=== PATIENT | male | born 1945 | race Caucasian/White ===

== ENCOUNTER 2017-03-03 01:21 | Emergency (ER) | payer OTHER ==
[2017-03-03] MEDS ORDERED: LABETALOL HCL 5 MG/ML 20 ML MDV IVP ONE (01:24)
--- NOTE | 2017-03-03 01:29 | EDPHY ---
H & P HPI/ROS: HPI CHIEF COMPLAINT: Stroke alert activated by EMS HISTORY OF PRESENT ILLNESS: This patient very pleasant 71-year-old male who presents emergency room as a stroke alert. Was last seen normal 11:00 p.m. or approximately 2.5 hours ago. His was called to his bed by the patient as he was slurring his speech. She went saw him at 12:30 a.m. or 1 hour ago and realized he was most likely having a stroke and called 911. Upon arrival to the emergency room is 1:25 a.m. he has a left-sided facial droop he is slurring his speech, he is handling his secretions, he has left- sided paralysis left upper extremity and left lower extremity do not move, left facial droop. This concerning for MCA stroke. It is reported to me by EMS that the patient is on Coumadin was recently hospitalized at [facility] to 3 days ago for congestive heart failure was started on Coumadin in the hospital. He is supposed to be taking this outpatient but has not gotten the prescription filled. No history of CVA per EMS. Upon arrival to the emergency room the patient was immediately greeted evaluated by me, he went right to CT scan to have a CT scan head without contrast. I am concerned about a large vessel occlusion. It is also noted upon arrival to the emergency room is blood pressure is 200/ 100. Past Medical History: Alcoholism, hypertension, nonsustained V-tach, hyperlipidemia, diabetes, atrial fib, congestive heart failure on Coumadin Past Surgical History: No recent surgical history Social History: Denies daily use of drugs alcohol tobacco products currently, lives locally, coming to ER. Family History: noncontributory ROS REVIEW OF SYSTEMS: A comprehensive 10 point review of systems is otherwise negative aside from elements mentioned in the history of present illness. Exam Constitutional Alert, awake, triage nursing summary reviewed, vital signs reviewed Eyes normal conjunctivae and sclera, EOMI, PERRLA. HENT normal inspection, atraumatic, moist mucus membranes, no epistaxis, neck supple/ no meningismus, no raccoon eyes. Respiratory clear to auscultation bilaterally, normal breath sounds, no respiratory distress, no wheezing. Cardiovascular rate normal, regular rhythm, no murmur, no edema, distal pulses normal. Gastrointestinal soft, non-tender, no rebound, no guarding, normal bowel sounds, no distension, no pulsatile mass. Genitourinary no CVA tenderness. Musculoskeletal no midline vertebral tenderness, full range of motion, no calf swelling, no tenderness of extremities, no meningismus, good pulses, neurovascularly intact. Skin pink, warm, & dry, no rash, skin atraumatic. Neurologic slurring his speech, left-sided paralysis no movement of the left upper extremity or left lower extremity, left facial droop. Does speak to me. Follows commands. Alert and oriented. Psychiatric normal mood/affect. Heme/Lymph/Immune no lymphadenopathy. Differential Diagnosis: Includes but is not limited to in a particular order acute CVA, large vessel occlusion, MCA infarct, intracranial bleed Medical Decision Making: plan for this patient stroke alert. Patient be immediately sent to CT scan he will be brought back to ER room 1. Need to be placed on full front desk monitor will need to obtain blood work including coags. Patient is obviously having a stroke left-sided deficit. Will consult neurology. 0132AM: Patient is now back from CT and ER room 1. just arrived. Patient may be excluded from tPA if he is on Coumadin or if I cannot get his blood pressure better. Will also speak with Neurology. Re-evaluation: 0133AM: Medication list reviewed from discharge summary from [facility] he is on metoprolol, lisinopril aspirin, Lasix, insulin, simvastatin and per report Coumadin. TIME OF NIHSS: 125AM UPON ARRIVAL: NIHSS 13 (left sided Paralysis (upper and lower, slurring speech, facial droop) 0142am: SPOKE WITH DR. Hernandez with [facility], he will see and evaluate the patient. 0142AM: CT head without contrast normal no bleed or no infarct seen. This was called to me by Dr. Moran. 0154AM: Dr. Carrington has seen and evaluated the Patient. Recommends IV tPA. We did look up his Coumadin level was 1.2 noted on February 27. He was given 20 mg IV labetalol his blood pressure is now 156/122. At this time plan is IV tPA. And also transferred to [facility] by helicopter for possible intervention on a large vessel occlusion. Will give IV systemic tPA here in the emergency room and then patient be transferred emergently by helicopter to [facility] for further care. I did discuss this with the patient and patient's at bedside they are both in agreement. EKG interpretation by me on record in [employer] system. Impression time of EKG 1:43 a.m., this is AFib rate of 122. Critical Care: Total Critical Care Time Spent Managing this Patient: 65 Minutes. This time was spent Exclusively with this patient. This Care was exclusive of procedures. The Organ System/life at risk was brain This Patient was in Critical Condition because acute CVA 0219: Helicopter staff here loading the patient. Patient be flown emergently to [facility] at this time. This time is hemodynamically stable, protecting airway. No indication intubate. Source: Patient, Family, EMS - Medical/Surgical History Hx Asthma: No Hx Chronic Respiratory Disease: No Hx Diabetes: Yes Hx Cardiac Disease: Yes Hx Renal Disease: No Hx Cirrhosis: No Hx Alcoholism: No Hx HIV/AIDS: No Hx Splenectomy or Spleen Trauma: No Other PMH: DM, HTN, dupetrens contractures deshaun hands; - Social History Smoking Status: Former smoker Allergies/Adverse Reactions: haloperidol [From Haldol] Allergy (Verified 10/31/15 10:25) haloperidol lactate [From Haldol] Allergy (Verified 10/31/15 10:25) haldol Allergy (Severe, Uncoded 10/31/15 10:25) Other-Enter Comments Home Medications: Medication Instructions Recorded Humalog Insulin Pump 1 ea SQ AD 10/18/15 Levothyroxine [Synthroid 100 mcg 100 mcg PO DAILY06 10/18/15 (*)] Simvastatin [Zocor] 40 mg PO DAILY 10/18/15 Aspirin [Aspirin 81mg (*)] 81 mg PO DAILY #30 tab 11/06/15 Diphenoxylate HCl/Atrop Sulf 1 tab PO QID #90 tab 11/06/15 [Lomotil Tab (*)] Labetalol HCl [Trandate 200 mg (*)] 300 mg PO BID #60 tab 11/06/15 Lisinopril [Zestril 20 mg (*)] 20 mg PO DAILY #30 tab 11/06/15 Melatonin [Melatonin 3 MG (*)] 3 mg PO HS #30 tab 11/06/15 QUEtiapine FUMARATE [Seroquel 50 50 mg PO HS #30 tab 11/06/15 mg (*)] clonIDINE [Catapres-Tts (*)] 0.3 mg TD Q7D #15 patch 11/06/15 Medical Decision Making - Data Points Laboratory Results: Laboratory Results 03/03/17 01:37 03/03/17 01:37 03/03/17 03/03/17 03/03/17 01:37 01:37 01:37 WBC RBC Hgb Hct MCV MCH MCHC RDW Plt Count MPV Neut % (Auto) Lymph % (Auto) [place] % (Auto) Eos % (Auto) Baso % (Auto) Nucleat RBC Rel Count Absolute Neuts (auto) Absolute Lymphs (auto) Absolute Monos (auto) Absolute Eos (auto) Absolute Basos (auto) Absolute Nucleated RBC Immature Gran % Immature Gran # PT 14.5 SEC SEC (12.0-15.0) INR 1.14 (0.83-1.16) APTT 30.9 SEC SEC (23.0-38.0) Sodium 134 mEq/L mEq/L (134-144) Potassium 4.8 mEq/L mEq/L (3.5-5.2) Chloride 105 mEq/L mEq/L (97-110) Carbon Dioxide 18 mEq/l L mEq/l (22-31) Anion Gap 11 mEq/L mEq/L (8-16) BUN 21 mg/dL mg/dL (7-23) Creatinine 1.2 mg/dL mg/dL (0.7-1.3) Estimated GFR 59 Glucose 122 mg/dL H mg/dL (70-100) Calcium 8.9 mg/dL mg/dL (8.5-10.4) Troponin I 0.044 ng/mL H ng/mL (0-0.034) Specimen Hemolysis 113 Ethyl Alcohol < 10 mg/dL mg/dL (0-10) Patient ABO/Rh Pending Antibody Screen Pending 03/03/17 01:37 WBC 11.10 10^3/uL H 10^3/uL (3.80-9.50) RBC 4.62 10^6/uL 10^6/uL (4.40-6.38) Hgb 14.1 g/dL g/dL (13.7-17.5) Hct 41.9 % % (40.0-51.0) MCV 90.7 fL fL (81.5-99.8) MCH 30.5 pg pg (27.9-34.1) MCHC 33.7 g/dL g/dL (32.4-36.7) RDW 13.5 % % (11.5-15.2) Plt Count 205 10^3/uL 10^3/uL (150-400) MPV 10.6 fL fL (8.7-11.7) Neut % (Auto) 42.3 % % (39.3-74.2) Lymph % (Auto) 47.2 % H % (15.0-45.0) [place] % (Auto) 7.3 % % (4.5-13.0) Eos % (Auto) 2.3 % % (0.6-7.6) Baso % (Auto) 0.6 % % (0.3-1.7) Nucleat RBC Rel Count 0.0 % % (0.0-0.2) Absolute Neuts (auto) 4.69 10^3/uL 10^3/uL (1.70-6.50) Absolute Lymphs (auto) 5.24 10^3/uL H 10^3/uL (1.00-3.00) Absolute Monos (auto) 0.81 10^3/uL H 10^3/uL (0.30-0.80) Absolute Eos (auto) 0.26 10^3/uL 10^3/uL (0.03-0.40) Absolute Basos (auto) 0.07 10^3/uL 10^3/uL (0.02-0.10) Absolute Nucleated RBC 0.00 10^3/uL 10^3/uL (0-0.01) Immature Gran % 0.3 % % (0.0-1.1) Immature Gran # 0.03 10^3/uL 10^3/uL (0.00-0.10) PT INR APTT Sodium Potassium Chloride Carbon Dioxide Anion Gap BUN Creatinine Estimated GFR Glucose Calcium Troponin I Specimen Hemolysis Ethyl Alcohol Patient ABO/Rh Antibody Screen Departure - Departure Disposition: Acute Care Hospital Not [facility] Clinical Impression: CVA (cerebral vascular accident) Qualifiers: CVA mechanism: unspecified Qualified Code(s): I63.9 - Cerebral infarction, unspecified Condition: Critical Referrals: Patient,NotPresent [Unknown] - As per Instructions
[2017-03-03] MEDS ORDERED: IOPAMIDOL (ISOVUE 370) 100 ML BTL IV ONE (01:37)
[2017-03-03] MEDS ORDERED: NS 50 ML IV ONE (01:43)
[2017-03-03] MEDS ORDERED: ALTEPLASE 1 MG/ML SYR IV ONE (01:43)
[2017-03-03] MEDS ORDERED: ALTEPLASE 100 MG/100 ML VIAL IV ONE (01:43)
[2017-03-03 01:44] LABS: % IMMATURE GRANULYOCYTES 0.3 % (0.0-1.1); ABSOLUTE IMMATURE GRANULOCYTES 0.03 10^3/uL (0.00-0.10); ADD DIFF? NO; ADD MORPH? NO; ADD SCAN? NO; ATYPICAL LYMPHOCYTE FLAG 10 (0-99); FRAGMENT RBC FLAG 0 (0-99); HEMATOCRIT 41.9 % (40.0-51.0); HEMOGLOBIN 14.1 g/dL (13.7-17.5); LEFT SHIFT FLG 0 (0-99); LIPEMIA HEMOLYSIS FLAG 80 (0-99); MEAN CELL HEMOGLOBIN 30.5 pg (27.9-34.1); MEAN CELL HEMOGLOBIN CONCENTR. 33.7 g/dL (32.4-36.7); MEAN CELL VOLUME 90.7 fL (81.5-99.8); MEAN PLATELET VOLUME 10.6 fL (8.7-11.7); PLATELET CLUMPS FLAG 10 (0-99); PLATELET COUNT 205 10^3/uL (150-400); RED BLOOD CELL COUNT 4.62 10^6/uL (4.40-6.38); RED CELL DISTRIBUTION WIDTH 13.5 % (11.5-15.2)
--- NOTE | 2017-03-03 01:47 | CPEKG ---
Heart Rate: 122 RR Interval: 492 QRSD Interval: 98 QT Interval: 316 QTC Interval: 451 QRS Cascade: -28 T Wave Cascade: 176 EKG Severity - ABNORMAL ECG - EKG Impression: ATRIAL FIBRILLATION, V-RATE 91-144 EKG Impression: VENTRICULAR PREMATURE COMPLEX EKG Impression: LOW VOLTAGE IN FRONTAL LEADS EKG Impression: NONSPECIFIC T ABNORMALITIES, LATERAL LEADS Electronically Signed By: Greg López 03-Mar-2017 21:57:35
[2017-03-03 01:55] LABS: INR 1.14 (0.83-1.16); PROTIME(PATIENT) 14.5 SEC (12.0-15.0)
[2017-03-03 01:56] LABS: APTT 30.9 SEC (23.0-38.0)
[2017-03-03 02:01] LABS: ANION GAP 11 mEq/L (8-16); CALCIUM 8.9 mg/dL (8.5-10.4); CARBON DIOXIDE 18 mEq/l (22-31); CHLORIDE 105 mEq/L (97-110); CREATININE 1.2 mg/dL (0.7-1.3); ETHANOL SERUM < 10 mg/dL (0-10); GLOMERULAR FILTRATION RATE 59; GLUCOSE 122 mg/dL (70-100); POTASSIUM 4.8 mEq/L (3.5-5.2); SODIUM 134 mEq/L (134-144); SPECIMEN HEMOLYSIS 113
[2017-03-03 02:13] LABS: TROPONIN I 0.044 ng/mL (0-0.034)
--- NOTE | 2017-03-03 02:19 | PDCONSULT ---
Voucher Clerk Note: [facility] Note Demographics Consult Type Acute Stroke First Name Tay Last Name Angelia Date of 1945 Age: 71 Gender Male Referring Provider Dr Stanley Time of initial page (): 03/03/2017 01:28 Time of return call (): 03/03/2017 01:28 Time Ready to Initiate Telemed Consult ( Time): 03/03/2017 01:37 PM-- Past Medical History: Atrial Fibrillation, coronary artery disease, Diabetes Mellitus, Hyperlipidemia, Hypertension, Hypothyroidism, CHF Social History: past drinker Medications: off coumadin fro upcoming eye procedure. Exam SBP: 200 DBP: 140 Mental Status: lethargic Language: no aphasia, dysarthria Cranial Nerves facial droop left, L complete hemianopia Motor: L upper extremity weakness, L lower extremity weakness Sensory: decreased sensation left face, dec sensation L upper extremity, dec sensation L lower extremity Cerebellar: normal cerebellar NIHSS Time (): 03/03/2017 01:32 LOC 1a: 1 = Not alert; but arousable by minor stimulation to obey, answer, or respond LOC 1b: 0 = Answers both questions correctly LOC Commands: 0 = Performs both tasks correctly Best Gaze: 2 = Forced deviation, or total gaze paresis not overcome by the oculocephalic maneuver Visual: 2 = Complete hemianopia Facial Palsy 2 = Partial paralysis (total or near-total paralysis of lower face ) Motor Arm L: 4 = No movement Motor Arm R: 0 = No drift; limb holds 90 (or 45) degrees for full 10 seconds Motor Leg L: 4 = No movement Motor Leg R: 0 = No drift; leg holds 30-degree position for full 5 seconds Limb Ataxia 0 = Absent Sensory: 2 = Severe to total sensory loss; patient is not aware of being touched in the face, arm, and leg Best Language: 0 = No aphasia; normal Dysarthria: 1 = [id number] dysarthria; patient slurs at least some words Extinction + Inattention: 1 = Visual, tactile, auditory, spatial, or personal inattention NIHSS: [address]: no bleed Assessment: Acute Ischemic Stroke, Right MCA syndrome, based on clinical findings should be ICA or M1 occlusion. Insider time window for tPA with IND at [facility] on 02/27 1.42. Plan Lytic/Intervention: IV + IA intervention tPA Administration Recommendations: I have reviewed the risks/benefits of tPA with family &/or patient. They understand that there is a potential of life threatening hemorrhagic complication from tPA, but feel that benefits outweigh risks and want to proceed with administration of tPA, BP goal< 180/100 for 24hrs post tPA administration, Use Labetolol 10-20mg IV prn or Nicardipine gtt to maintain BP parameters, No antiplatelets or anticoagulants for next 24 hrs unless indicated for emergent IA procedure or other life threatening situation Other telemetry monitoring, I have discussed my recommendations with the referring provider Additional Recommendations: Transfer to [facility] Disposition transfer
[2017-03-03 02:44] VITALS: RESP 16; TEMP 98.1
[2017-03-03 02:57] VITALS: BP 162/142; PULSE 93; O2SAT 96
== END 2017-03-03 02:20 | disposition short-term general hospital (02) ==
LOC: EDUNIT#
DX: I63.9 Cerebral infarction, unspecified (principal); I10 Essential (primary) hypertension; E11.9 Type 2 diabetes mellitus without complications; Z79.4 Long term (current) use of insulin; Z79.82 Long term (current) use of aspirin; Z87.891 Personal history of nicotine dependence
CPT/HCPCS: 37195; 70450; 71010; 93005; 96374; 99291; J2997; J3490; 82947-QW; G0480; Q9967